=== PATIENT | female | born 1960 | race Caucasian/White ===

== ENCOUNTER → 2017-03-03 | Outpatient (CLI) | payer BC ==
--- NOTE | 2017-03-07 10:25 | MM ---
Reason for exam: screening (asymptomatic). Last mammogram was performed 11 years and 2 months ago. History: Patient had first child at age 29. Family history of breast cancer in mother at age 83. Benign excisional biopsy of the left breast, July 13, 2002. Taking hormonal contraceptives. Physical Findings: A clinical breast exam by your physician is recommended on an annual basis and results should be correlated with mammographic findings. MG 3D Screening Mammo W/Cad Bilateral CC and MLO view(s) were taken. Prior study comparison: February 10, 2016, mammogram. January 30, 2015, mammogram. There are scattered fibroglandular densities. Finding: There is a 6 mm oval mass located 3-4 cm from the nipple in the inner quadrant, anterior, central position of the right breast. New finding since February 10, 2016 and January 30, 2015. ASSESSMENT: Incomplete: need additional imaging evaluation, BI-RAD 0 RECOMMENDATION: Ultrasound of the right breast. [facility] will attempt to contact patient to return for ultrasound.
== END | disposition home or self-care (01) ==
LOC: RADMAMWWP 08:04
PROVIDERS: ATTEND General Practice
DX: Z12.31 Encounter for screening mammogram for malignant neoplasm of breast (principal)
CPT/HCPCS: 77063; G0202

== ENCOUNTER → 2017-03-09 | Outpatient (CLI) | payer BC ==
--- NOTE | 2017-03-10 07:47 | USB ---
Reason for exam: additional evaluation requested from abnormal screening. History: Patient had first child at age 29. Family history of breast cancer in mother at age 83. Benign excisional biopsy of the left breast, July 13, 2002. Taking hormonal contraceptives. Physical Findings: Nurse did not find any significant physical abnormalities on exam. US Breast Workup Limited RT Right breast ultrasound demonstrates a 4 x 3 x 5mm oval lesion too small to characterize at 6 o'clock. These results were verbally communicated with the patient and result sheet given to the patient on 03/09/17. ASSESSMENT: Probably benign, BI-RAD 3 RECOMMENDATION: Follow-up diagnostic mammogram and ultrasound of the right breast in 6 months.
== END | disposition home or self-care (01) ==
LOC: RADUSWWP 15:28
PROVIDERS: ATTEND General Practice
DX: R92.8 Other abnormal and inconclusive findings on diagnostic imaging of breast (principal)

== ENCOUNTER → 2018-03-28 | Outpatient (CLI) | payer BC ==
--- NOTE | 2018-03-30 11:41 | MM ---
Reason for exam: screening (asymptomatic). Last mammogram was performed 6 months ago. History: Patient is postmenopausal and had first child at age 29. Family history of breast cancer in mother at age 83. Benign excisional biopsy of the left breast, July 13, 2002. Took hormonal contraceptives for 20 years. Took estrogen for 3 years beginning at age 51. Physical Findings: A clinical breast exam by your physician is recommended on an annual basis and results should be correlated with mammographic findings. MG 3D Screening Mammo W/Cad Bilateral CC and MLO view(s) were taken. Prior study comparison: September 14, 2017, right breast MG 3d diag mammo w/cad RT. March 03, 2017, bilateral MG 3d screening mammo w/cad. The breast tissue is heterogeneously dense. This may lower the sensitivity of mammography. Nodular density upper right MLO view 5.2cm from nipple. ASSESSMENT: Incomplete: need additional imaging evaluation, BI-RAD 0 RECOMMENDATION: Special view mammogram of the right breast. If lesion persists on supplemental views, image directed ultrasound is recommended. [facility] will attempt to contact patient to return for supplemental views and ultrasound if indicated.
== END | disposition home or self-care (01) ==
LOC: RADMAMWWP 16:12
PROVIDERS: ATTEND General Practice
DX: Z12.31 Encounter for screening mammogram for malignant neoplasm of breast (principal)
CPT/HCPCS: 77063; 77067

== ENCOUNTER → 2019-06-11 | Outpatient (CLI) | payer BC ==
--- NOTE | 2019-06-12 14:00 | MM ---
Reason for exam: screening (asymptomatic). Last mammogram was performed 1 year and 2 months ago. History: Patient is postmenopausal and had first child at age 29. Family history of breast cancer in mother at age 83. Benign excisional biopsy of the left breast, July 13, 2002. Took hormonal contraceptives for 20 years. Took estrogen for 3 years beginning at age 51. Physical Findings: A clinical breast exam by your physician is recommended on an annual basis and results should be correlated with mammographic findings. MG 3D Screening Mammo W/Cad Bilateral CC and MLO view(s) were taken. Prior study comparison: April 12, 2018, right breast MG 3d work up w/cad RT. March 28, 2018, bilateral MG 3d screening mammo w/cad. The breast tissue is heterogeneously dense. This may lower the sensitivity of mammography. There is a stable right 6mm middle depth lower inner quadrant mass. No suspicious abnormality. No significant changes when compared with prior studies. ASSESSMENT: Benign, BI-RAD 2 RECOMMENDATION: Routine screening mammogram of both breasts in 1 year.
== END | disposition home or self-care (01) ==
LOC: RADMAMWWP 12:31
PROVIDERS: ATTEND General Practice
DX: Z12.31 Encounter for screening mammogram for malignant neoplasm of breast (principal)
CPT/HCPCS: 77063; 77067

== ENCOUNTER → 2024-11-20 | Outpatient (CLI) | payer MEDICARE ==
[2024-11-20 13:59] VITALS: BP 141/83; PULSE 95; RESP 16; TEMP 97.4
--- NOTE | 2024-11-20 14:43 | P.HPOB ---
History of Present Illness H&P Date: 11/20/24 Chief Complaint: The patient is here for her routine gynecologic exam and ma mmogram. This is a 64-year-old G2, P2 with an LMP of approximately 2006. The patient is here to establish with this office. It has been more than 20 years since her last pelvic exam. She believes she was once told that she did not need these exams after the menopause, but she recently realized she should have exams. She is without gynecologic complaints and denies any postmenopausal bleeding. Review of Systems Her weight can fluctuate by 10 pounds. She denies respiratory, cardiac, or GI problems Past Medical History Past Medical History: Asthma, Hyperlipidemia, Hypertension Additional Past Medical History / Comment(s): Osteopenia(used Fosamax for 2yrs). 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 History of Any Multi-Drug Resistant Organisms: None Reported Past Surgical History: Breast Surgery, Section Additional Past Surgical History / Comment(s): Left Benign breast lumpectomy. Colonoscopy 2019(next after 10yr). [place] teeth removed. Varicose veins injected. 1 followed by . Smoking Status: Former smoker Past Alcohol Use History: Occasional (4-5 drinks per week.) Additional Past Alcohol Use History / Comment(s): Smoked for about 10 years but quit by the age of 28. Past Drug Use History: None Reported Additional History: She has been since 1986. She is a retired school counselor. - Past Family History Mother Family Medical History: Cancer, Congestive Heart Failure (CHF) Additional Family Medical History / Comment(s): Breast and skin cancer. . Maternal grandmother had cervical cancer. Father Family Medical History: Cancer Additional Family Medical History / Comment(s): Prostate cancer and cardiac valve problems. . Brother(s) Family Medical History: Coronary Artery Disease (CAD) Son(s) Family Medical History: Cancer Additional Family Medical History / Comment(s): Testicular cancer. Medications and Allergies Home Medications Medication Instructions Recorded Confirmed Type Atorvastatin [Lipitor] 10 mg PO DAILY 11/20/24 11/20/24 History Calcium Citrate/Vitamin D3 1 each PO DAILY 11/20/24 11/20/24 History [Citracal + D Maximum Caplet] Loratadine [Claritin] 5 mg PO DAILY 11/20/24 11/20/24 History Losartan [Cozaar] 25 mg PO DAILY 11/20/24 11/20/24 History Multivit-Min/Iron/Folic/Lutein 1 each PO DAILY 11/20/24 11/20/24 History [Centrum Silver Women Tablet] Conner-3/Dha/Epa/Fish Oil [Fish Oil 1 each PO DAILY 11/20/24 11/20/24 History 1,000 mg Softgel] flaxseed oiL [Flax Oil] 1,300 mg PO DAILY 11/20/24 11/20/24 History Allergies Allergy/AdvReac Type Severity Reaction Status Date / Time Sulfa (Sulfonamide AdvReac Rash/Hives Unverified 11/20/24 13:50 Antibiotics) Exam Vital Signs Temp Pulse Resp BP Pulse Ox 11/20/24 13:53 97.4 F L 95 16 141/83 98 Intake and Output 11/19/24 11/20/24 11/20/24 22:59 06:59 14:59 Other: Weight 69.4 kg Height 5 feet 6 inches, weight 153 pounds, BMI 24.7. This is a well-developed well-nourished white female who is alert and oriented times 3 in no acute distress. HEENT: Within normal limits. NECK: Supple without mass or thyromegaly. CHEST AND LUNGS: Clear to auscultation. HEART: Regular rate and rhythm. BREASTS: Are without mass or discharge. AXILLARY EXAM: Negative for adenopathy. BACK: Negative for CVA tenderness. ABDOMEN: Soft, nontender, without palpable masses. PELVIC EXAM: Normal external genitalia mild atrophy. Cervix and vagina appear normal with mild atrophy. There is no unusual discharge. There is no evidence of prolapse. The uterus is midposition, nongravid size and nontender. There are no palpable adnexal masses or tenderness. RECTAL EXAM: Rectovaginal exam is negative for mass or tenderness and is neg ative for occult blood. EXTREMITIES: Nontender. IMPRESSION: 1. 64-year-old menopausal female with normal gynecologic exam. 2. History of osteopenia status post 2 years use of Fosamax, per the patient. PLAN: 1. Pap smear cotest was performed. Cervical cancer screening tests will be continued since she has not had a pelvic exam for more than 20 years. If this Pap smear cotest is negative and another 1 is negative in about 5 years, we can consider discontinuing Pap smears at that time. 2. Self breast awareness was discussed with the patient. We have also discussed symptoms associated with inflammatory breast cancer. 3. Screening mammogram will be done today. 4. Osteoporosis prevention was discussed. I have stressed the importance of adequate calcium, vitamin D and regular exercise. Recommended amounts of calcium and vitamin D were also discussed. I recommended a bone density test since it has been more than 5 years since her last 1. The order slip will be mailed to the patient. 5. She was advised to return in one year for her annual well woman exam.
--- NOTE | 2024-11-20 15:08 | MM ---
Reason for Exam: Screening (asymptomatic). Last mammogram was performed 5 year(s) and 5 month(s) ago. Patient History: Menarche at age 11. First Full-Term at age 29. Late child-bearing (after 28). Postmenopausal. Estrogen for 3 years from age 51 until age 54. Patient used Hormonal Contraceptives for 20 years. 07/13/2002, Benign Excisional Biopsy on the left side. Mother had breast cancer, age 83. Risk Values: Nancy 5 year model risk: 4.0%. NCI Lifetime model risk: 13.8%. Prior Study Comparison: 03/28/2018 Bilateral Screening Mammogram, [facility]. 04/12/2018 Right Diagnostic Mammogram, [facility]. 06/11/2019 Bilateral Screening Mammogram, [facility]. Tissue Density: The breasts are heterogeneously dense, which may obscure small masses. Findings: Analyzed By CAD. Right breast biopsy clip. Right breast: There is no suspicious group of microcalcifications or new suspicious mass. Left breast: There is no suspicious group of microcalcifications or new suspicious mass. Overall Assessment: Negative, BI-RAD 1 Management: Screening Mammogram of both breasts in [address] [facility] will attempt to contact patient to return for supplemental views and ultrasound if indicated. Patient should continue monthly self-breast exams. A clinical breast exam by your physician is recommended on an annual basis. This exam should not preclude additional follow-up of suspicious palpable abnormalities. Note on Nancy scores and lifetime risk: 1. A Nancy score greater than 3% is considered moderate risk. If this is the case, consider specialist referral to assess eligibility for a risk reducing agent. 2. If overall lifetime risk for the development of breast cancer is 20% or higher, the patient may qualify for future screening with alternating mammogram and breast MRI. [facility], , 11/20/2024 3:05 PM. Electronically signed and approved by: Jorje Gibbs DO
== END ==
LOC: WWCWWP 13:08
PROVIDERS: ATTEND Obstetrics & Gynecology
DX: Z01.419 Encounter for gynecological examination (general) (routine) without abnormal findings (principal); Z12.31 Encounter for screening mammogram for malignant neoplasm of breast; Z88.2 Allergy status to sulfonamides; Z78.0 Asymptomatic menopausal state; Z87.39 Personal history of other diseases of the musculoskeletal system and connective tissue; Z87.891 Personal history of nicotine dependence
CPT/HCPCS: 77063; 77067